=== PATIENT | female | born 1990 | race Caucasian/White ===

== ENCOUNTER 2024-04-20 16:10 | Outpatient (OUT) | payer OTHER, SELFPAY ==
[2024-04-20 17:19] LABS: HCG Quantitative <1 mIU/mL
== END 2024-04-20 16:11 | disposition home or self-care (01) ==
PROVIDERS: Visit Provider Obstetrics & Gynecology
DX: N91.2 Amenorrhea, unspecified (principal); N97.0 Female infertility associated with anovulation
CPT/HCPCS: 36415; 84702

== ENCOUNTER 2025-04-08 09:39 | Outpatient (OUT) | payer OTHER, SELFPAY ==
--- OUTSIDE RECORDS SUMMARY | 2025-04-08 09:40 | XMS_ITS | Clinical Summary ---
Author Organization [facility] Address [address] [place] [address] Care Team Providers Care Senior Wealth Advisor Name Role Phone Xenia Gudino MD Primary Care Provider Allergies No known active allergies Medications metFORMIN XR (Glucophage-XR) 500 MG 24 hr tabletIndicatio ns:Amenorrhea Take 1 tablet (500 mg) by mouth in the evening. Take with meals Do not crush, chew, or split. 30 tablet 11 04/12/2024 Active letrozole (Femara) 2.5 MG chemo tabletIndicatio ns:Fallopian tube disorder,Anovul ation,Amenorrhe a,Encounter for fertility planning Take 3 tablets (7.5 mg total) by mouth Daily for 5 days. 15 tablet 04/04/2025 04/09/20 25 Active letrozole (Femara) 2.5 MG chemo tabletIndicatio ns:Anovulation, Encounter for fertility planning Take 3 tablets (7.5 mg total) by mouth Daily for 5 days. 15 tablet 03/04/2025 03/09/20 25 Encounters Date Type Department Care Team Description 04/05/2025 Abstract [facility] [address] [place] [address] Alejandro Talavera, 04/04/2025 Telephone [facility] [place] [address] [place] [address] Mandy Hoskins LPN 03/23/2025 Abstract [facility] [address] [place] [address] Alejandro Talavera, 03/04/2025 Telephone [facility] [address] [place] [address] Mandy Hoskins, STRAW HAT PRESSER 02/21/2025 Abstract [facility] [address] [place] [address] Alejandro Talavera, 01/31/2025 Telephone [facility] [address] [place] [address] Mandy Hoskins, STRAW HAT PRESSER 01/19/2025 Telephone [facility] [address] [place] [address] Mandy Hoskins, STRAW HAT PRESSER 01/18/2025 Abstract [facility] [address] [place] [address] Alejandro Talavera, from Last 3 Months Family History Medical History Relation Name Comments Cancer Maternal Grandmother Relation Name Status Comments Father Alive Maternal Grandmother Mother Alive Social History Tobacco Use Types Packs/Day Years Used Date Smoking Tobacco: Every Day Cigarettes Comments:5 or less Alcohol Use Standard Drinks/Week Comments Yes 0 (1 standard drink = 0.6 oz pure alcohol) 1 or 2 drinks on a typical day / monthly or less Comments No Sex and Gender Information Value Date Recorded Sex Assigned at Female 10/14/2023 8:39 AM EST Legal Sex Female 6:50 PM EDT Gender Identity Female 10/14/2023 8:39 AM EST Sexual Orientation Straight 10/14/2023 8: 39 AM EST Last Filed Vital Signs Vital Sign Reading Time Taken Comments Blood Pressure 124/82 11/10/2024 4:28 PM EST Pulse - - Temperature - - Respiratory Rate - - Oxygen Saturation - - Inhaled Oxygen Concentration - - Weight 109 kg (241 lb 1.9 oz) 11/10/2024 4:28 PM EST Height 160 cm (5' 3 ) 10/14/2023 9:30 AM EST Body Mass Index 42.71 10/14/2023 9:30 AM EST Plan of Treatment Health Maintenance Due Date Last Done Comments HPV/Cotest 2018 Influenza Vaccine (Season Ended) 2025 Cervical Cancer Screening 12/11/2025 Pap Smear 12/11/2025 12/11/2022 Procedures Procedure Name Priority Date/Time Associated Diagnosis Comments PAP SMEAR Routine 12/11/2022 12:00 AM EST from Last 3 Months or Most Recently Relevant to Health Maintenance Results * Pap Smear (12/11/2022 12:00 AM EST) Swab Cervical swab / Unknown us [facility]an [facility] CYTOLOGY ORDERABLES Final Result EXTERNAL LAB from Last 3 Months or Most Recently Relevant to Health Maintenance Insurance [employer] Care Teams Senior Wealth Advisor Relationship Specialty Start Date End Date Xenia Gudino MD [address] [place] [address] PCP - General Family Medicine 02/25/23
--- OUTSIDE RECORDS SUMMARY | 2025-04-08 09:40 | XMS_ITS | Encounter Summary ---
Author Organization [facility] Address [address] [place] [address] Care Team Providers Care Dope Dry House Operator Name Role Phone Xenia Gudino MD Primary Care Provider [phone] Encounter Details Date Type Department Care Team (Late st Contact Info) Description 03/23/2025 Abstract [facility] [address] [facility] [place] [address] Alejandro Talavera, DO [address] [facility] [address] [place], [facility] [address] Social History Tobacco Use Types Packs/Day Years [...] Orientation Straight 10/14/2023 8: 39 AM EST documented as of this encounter Plan of Treatment Not on file documented as of this encounter Visit Diagnoses Not on filedocumented in this encounter Care Teams Dope Dry House Operator Relationship Specialty Start Date End Date Xenia Gudino MD [address] [place] [address] PCP - General Family Medicine 02/25/23 documented as of this encounter
--- OUTSIDE RECORDS SUMMARY | 2025-04-08 09:40 | XMS_ITS | Encounter Summary ---
Author Organization [facility] Address [address] [place] [address] Care Team Providers Care Senior Pharmacy Technician Name Role Phone Xenia Gudino MD Primary Care Provider [phone] Encounter Details Date Type Department Care Team (Late st Contact Info) Description 02/21/2025 Abstract [facility] [address] [facility] [address] [place] [address] Alejandro Talavera, DO [address] [facility] [address] [place], [facility]11 Social History Tobacco Use Types Packs/Day Years [...] on filedocumented in this encounter Care Teams Senior Pharmacy Technician Relationship Specialty Start Date End Date Xenia Gudino MD [address] [place] [address] PCP - General Family Medicine 02/25/23 documented as of this encounter
--- OUTSIDE RECORDS SUMMARY | 2025-04-08 09:40 | XMS_ITS | Encounter Summary ---
Author Organization [facility] Address [address] [place] [address] Care Team Providers Care Arrt Technologist Name Role Phone Xenia Gudino MD Primary Care Provider [phone] Encounter Details Date Type Department Care Team (Late st Contact Info) Description 04/05/2025 Abstract [facility] [address] [place] [address] Alejandro Talavera, DO [address] [facility] [address] [place], [facility]11 Social History Tobacco Use Types Packs/Day Years [...] on filedocumented in this encounter Care Teams Arrt Technologist Relationship Specialty Start Date End Date Xenia Gudino MD [address] [place] [address] PCP - General Family Medicine 02/25/23 documented as of this encounter
--- OUTSIDE RECORDS SUMMARY | 2025-04-08 09:40 | XMS_ITS | Encounter Summary ---
Author Organization [facility] Address [address] [place] [address] Care Team Providers Care City Distribution Clerk Name Role Phone Xenia Gudino MD Primary Care Provider Encounter Details Date Type Department Care Team (Late st Contact Info) Description 11/03/2024 Orders Only [facility] [address] [place] [address] Marii Sosa LPN [address] [facility] [place] [address] Social History Tobacco Use Types Packs/Day Years [...] on file documented as of this encounter Procedures Procedure Name Priority Date/Time Associated Diagnosis Comments PAP SMEAR Routine 12/11/2022 12:00 AM EST documented in this encounter Results * Pap Smear (12/11/2022 12:00 AM EST) Swab Cervical swab / Unknown Ilan [facility] CYTOLOGY ORDERABLES Final Result EXTERNAL LAB documented in this encounter Visit Diagnoses Not on filedocumented in this encounter Care Teams City Distribution Clerk Relationship Specialty Start Date End Date Xenia Gudino MD [address] [place] [address] PCP - General Family Medicine 02/25/23 documented as of this encounter
--- OUTSIDE RECORDS SUMMARY | 2025-04-08 09:40 | XMS_ITS | Encounter Summary ---
Author Organization [facility] Address [address] [place] [address] Care Team Providers Care Cutting Table Operator First Name Role Phone Xenia Gudino MD Primary Care Provider [phone] Encounter Details Date Type Department Care Team (Late st Contact Info) Description 12/17/2024 Abstract [facility] [address] [place] [address] Alejandro Talavera, DO [address] [facility] [address] [place], [facility]11 Social History Tobacco Use Types Packs/Day [...] on filedocumented in this encounter Care Teams Cutting Table Operator First Relationship Specialty Start Date End Date Xenia Gudino MD [address] [place] [address] PCP - General Family Medicine 02/25/23 documented as of this encounter
--- OUTSIDE RECORDS SUMMARY | 2025-04-08 09:40 | XMS_ITS | Encounter Summary ---
Author Organization [facility] Address [address] [place] [address] Care Team Providers Care Ice Sculptor Name Role Phone Xenia Gudino MD Primary Care Provider [phone] Encounter Details Date Type Department Care Team (Late st Contact Info) Description 04/04/2025 Telephone [facility] [address] [place] [address] Mandy Hoskins LPN Social History Tobacco Use Types Packs/Day Years [...] AM EST documented as of this encounter Miscellaneous Notes * Telephone Encounter - Mandy Hoskins LPN - 04/04/2025 3:12 PM EDT 906am Patient called and LMOM that today is technically day 2 of cycle & the last time she spoke about fertility HSG was discussed and would like to know details about that procedure. 3:35pm Called patient and informed her that HSG could be done this Friday at [facility] if prior authorization went through. PVU and aware that Femara 7.5mg will be sent to pharmacy as well. Patient will benotified once HSG is setup from [facility]. PVU and will wait call back from scheduling/radiology. Mandy [place] LPN documented in this encounter Plan of Treatment Scheduled Orders Name Type Priority Associated Diagnoses Orde r Schedule hCG, quantitative, Lab Routine Fallopian tube disorder Expected: 04/04/2025 (Approximate), Expires: 04/04/2026 XR hysterosalpingogram Imaging Routine Fallopian tube disorder Expected: 04/04/2025 (Approximate), Expires: 04/04/2026 documented as of this encounter Visit Diagnoses Diagnosis Fallopian tube disorder Unspecified noninflammatory disorder of ovary, fallopian tube, and broad ligament Anovulation Female infertility associated with anovulation Amenorrhea Absence of menstruation Encounter for fertility planning documented in this encounter Care Teams Ice Sculptor Relationship Specialty Start Date End Date Xenia Gudino MD [address] [place] [address] PCP - General Family Medicine 02/25/23 documented as of this encounter
--- OUTSIDE RECORDS SUMMARY | 2025-04-08 09:40 | XMS_ITS | Encounter Summary ---
Author Organization [facility] Address [address] [place] [address] Care Team Providers Care Legal Department Manager Name Role Phone Xenia Gudino MD Primary Care Provider [phone] Encounter Details Date Type Department Care Team (Late st Contact Info) Description 01/18/2025 Abstract [facility] [address] [place] [address] Alejandro Talavera, DO [address] [facility] [address] [place], [facility]11 Social History Tobacco Use Types Packs/Day [...] on filedocumented in this encounter Care Teams Legal Department Manager Relationship Specialty Start Date End Date Xenia Gudino MD [address] [place] [address] PCP - General Family Medicine 02/25/23 documented as of this encounter
--- NOTE | 2025-04-08 10:02 | FL_ITS ---
The [address] [address] Patient Name: JONATHAN TRACY MRN: [id number] date: 1990 Sex: F Assigned Patient Location: LAB Current Patient Location: LAB Accession/Order Number: [id number] Exam Date: 04/08/2025 11:53 Report Date: 04/08/2025 11:56 At the request of: SOPHIA TALAVERA DO Procedure: FL hysterosalpingography HYSTEROSALPINGOGRAM - 2 views CLINICAL DATA: Fallopian tube disorder COMPARISON: None The procedure was performed by Dr. Talavera. Two spot views of the pelvis were obtained. The initial image shows contrast outlining a normal-appearing endometrial cavity. There is visualization of fallopian tubes. There appears to be free contrast within the pelvis on both sides documenting tubal patency. This was also confirmed by the performing physician at the time of the study. The second image is nondiagnostic. Fluoroscopy time: 25 seconds FL/FL hysterosalpingography IMPRESSION: DOCUMENTATION OF TUBAL PATENCY. Impression dictated by: Italia Reece M.D. 04/08/2025 11:56 AM Dictation Location: [place] [address] Electronically authenticated by: [id number] Y Date: 04/08/2025 11:56
[2025-04-08 10:15] LABS: HCG Quantitative <1 mIU/mL
[2025-04-08 10:40] VITALS: BP 173/120; PULSE 105; O2SAT 97; BMI 41.7
[2025-04-08] MEDS: IOHEXOL 240 MG/ML - 10 ML VIAL INJ (10:43)
[2025-04-08 11:00] VITALS: BP 129/97; PULSE 100; O2SAT 97
--- NOTE | 2025-04-08 11:30 | PC.NURSE ---
1046 Pt tolerated procedure well, C/O some cramping. 1105 Verbalizes understanding of discharge instructions. Ambulated to lobby, gait steady. Denies complaints.
== END 2025-04-08 09:40 | disposition home or self-care (01) ==
LOC: LAB 09:39
PROVIDERS: Visit Provider Obstetrics & Gynecology
DX: N83.9 Noninflammatory disorder of ovary, fallopian tube and broad ligament, unspecified (principal)
CPT/HCPCS: 36415; 58340; 74740; 84702; Q9966